=== PATIENT | male | born 1940 | race Caucasian/White ===

== ENCOUNTER 2018-01-03 06:35 | Day surgery (SDC) | payer OTHER, BC ==
[~2018-01-03] VITALS: Ht 177.8 cm; Wt 90.7 kg
[~2018-01-03 06:35] MED LIST: ALTACE10 MG PO; BALANCE B-501 EAC1 PO; LIPITOR80 MG PO; LITE COAT ASPI325 M1 PO; PLAVIX75 MG PO; VITAMIN D32000 UNI1 PO; ZEGERID40 MG PO
[2018-01-03 06:54] VITALS: BP 160/90
[2018-01-03 07:43] LABS: PTT 37.3 SEC (25-37)
[2018-01-03 10:25] VITALS: BP 165/84
[2018-01-03 11:03] VITALS: BP 154/96
== END 2018-01-03 11:05 | disposition home or self-care (01) ==
LOC: SDC 06:35
PROVIDERS: Ophthalmology
PROC: 08J0XZZ Inspection of Right Eye, External Approach (ICD-10-PCS; principal; 2018-01-03)
DX: H33.21 Serous retinal detachment, right eye (principal); Z53.8 Procedure and treatment not carried out for other reasons; E11.319 Type 2 diabetes mellitus with unspecified diabetic retinopathy without macular edema; I10 Essential (primary) hypertension; E78.5 Hyperlipidemia, unspecified; K21.9 Gastro-esophageal reflux disease without esophagitis; Z85.46 Personal history of malignant neoplasm of prostate; Z79.82 Long term (current) use of aspirin; Z79.02 Long term (current) use of antithrombotics/antiplatelets
CPT/HCPCS: 82948; 85610; 85730; J0330; J0690; J0713

== ENCOUNTER 2018-01-07 10:57 | Day surgery (SDC) | payer OTHER, BC ==
[~2018-01-07] VITALS: Ht 203.2 cm; Wt 90.7 kg
[2018-01-07 11:27] VITALS: BP 135/81
[2018-01-07 11:47] LABS: INTER. NORMALIZED RATIO 1.1
[2018-01-07 11:50] LABS: PTT 37.5 SEC (25-37)
[2018-01-07 16:18] VITALS: BP 118/71
[2018-01-07 17:13] VITALS: BP 120/70
== END 2018-01-07 17:15 | disposition home or self-care (01) ==
LOC: SDC 10:57
PROVIDERS: Ophthalmology
DX: H33.022 Retinal detachment with multiple breaks, left eye (principal); I35.8 Other nonrheumatic aortic valve disorders; E11.9 Type 2 diabetes mellitus without complications; K44.9 Diaphragmatic hernia without obstruction or gangrene; Z87.19 Personal history of other diseases of the digestive system; I34.0 Nonrheumatic mitral (valve) insufficiency; I48.0 Paroxysmal atrial fibrillation; I07.1 Rheumatic tricuspid insufficiency; I10 Essential (primary) hypertension; Z79.82 Long term (current) use of aspirin; Z79.02 Long term (current) use of antithrombotics/antiplatelets; Z88.8 Allergy status to other drugs, medicaments and biological substances; Z80.0 Family history of malignant neoplasm of digestive organs; Z82.49 Family history of ischemic heart disease and other diseases of the circulatory system
CPT/HCPCS: 85610; 85730; J0360; J0690; J0713; J1170; J2250; J2405; J3300